=== PATIENT | female | born 1950 ===

== ENCOUNTER → 2017-07-15 | Outpatient (CLI) | payer MEDICARE, OTHER | LOC: LAB SHORT 11:00 → LAB 11:00 | DX: L60.0 Ingrowing nail (principal) | CPT/HCPCS: 87102 ==

== ENCOUNTER → 2019-09-28 | Outpatient (CLI) | payer MEDICARE, OTHER | END | disposition home or self-care (01) | LOC: PLD 10:01 → LAB SHORT 10:01 | DX: L57.0 Actinic keratosis (principal) | CPT/HCPCS: 88305 ==